=== PATIENT | female | born 1995 | race Caucasian/White ===

== ENCOUNTER → 2021-01-28 | Outpatient (CLI) | payer BC, OTHER ==
--- NOTE | 2021-01-28 10:02 | P.PAINCN ---
History of Present Illness - Reason for Consult Consult date: 01/28/21 - History of Present Illness This is 25 years old female with a chronic history of severe headache, she is diagnosed with occipital neuralgia, she was referred to [facility] pain clinic for occipital nerve block, patient reported that she had headache for 2 years starts from the base of the skull and radiated to the top, she denies any numbness or tingling sensation, she denies any motor or sensory deficit, she denies any aura, no visual changes Past Medical History Past Medical History: Asthma Additional Past Medical History / Comment(s): Migraine headaches History of Any Multi-Drug Resistant Organisms: None Reported Past Surgical History: Cholecystectomy, Orthopedic Surgery Additional Past Surgical History / Comment(s): Lt knee meniscus; Lt knee partial ACL removal Past Anesthesia/Blood Transfusion Reactions: Motion Sickness Past Psychological History: Anxiety, Depression Additional Psychological History / Comment(s): Panic attacks Smoking Status: Never smoker Past Alcohol Use History: Occasional Past Drug Use History: None Reported - Past Family History Father Family Medical History: No Reported History Medications and Allergies Home Medications Medication Instructions Recorded Confirmed Type ALPRAZolam [Xanax] 0.25 mg PO BID PRN 01/24/21 01/24/21 History Butalb/APAP/Caff 50-325-40Mg 1 tab PO Q6H PRN 01/24/21 01/24/21 History [Fioricet 50-325-40] FLUoxetine HCL [PROzac] 80 mg PO DAILY 01/24/21 01/24/21 History Ondansetron [Zofran] 4 mg PO Q8HR PRN 01/24/21 01/24/21 History Topiramate [Topamax] 150 mg PO DAILY 01/24/21 01/24/21 History buPROPion XL [Wellbutrin Xl] 150 mg PO DAILY 01/24/21 01/24/21 History Allergies Allergy/AdvReac Type Severity Reaction Status Date / Time No Known Allergies Allergy Verified 01/24/21 10:48 Physical Exam Vitals: Vital Signs Temp Pulse Resp BP Pulse Ox 01/28/21 09:29 97.8 F 72 18 148/96 100 Physical Examinations : -Constitutiona : Cooperative , not in acute distress . -HEENT : nech : supple , no Lymphadenopathy , normal thyroid size . : eyes : no ptosis , no icterus, no photophobia . - neurologic : Cranial nerve II to XII intact , no focal neurological deffecit . -psychatric : alert , oriented X 3 , appropriate affect , intact judgment and insight . -Lymphatic : no Lymphadenopathy . - musculoskeltal : Cervical Spine motor stregnth in the deltoid and biceps, normal right side , normal Left side motor stregnth biceps and the wrist extensors normal right side ,normal left side . motor stregnth in the triceps muscle . normal Right side , normal Left side deep tendon reflexes normal at the biceps , normal at Brachioradialis , normal at triceps. cervical facet loading test: Positive Bilaterally Severe tenderness over the occipital nerve bilaterally Lumber spine moter stegnth lower extremities ,thigh and legs 5/5 Right side , 5/5 Left side Results Comments: Kecia of the brain= normal Assessment and Plan Plan: Assessment and plan=1-occipital neuralgia (bilaterally ) Patient could benefit from bilateral occipital nerve block Time with Patient: Greater than 30 PQRS Measure Charge Sheet Measure #130: Documentation of Current Meds in Medical Chart: Patient's medications documented in chart Measure #226: Tobacco Use: Screen & Cessation Intervention: Pt not a tobacco user Measure #111: Pneumonia Vaccination: Pneumococcal vaccine NOT administered or previously given Measure #47: Advance Care Plan: Advance care planning discussed & documented, pt chose/unable to give Measure #412: Opioid Treatment Agreement: No documentation of signed opioid treatment agreement Measure #408: Opioid Therapy Follow-up Evaluation: Patient had NO f/u eval minimum every 3 months during opioid therapy Measure #317: Preventitive Care & Scrn High Bld Press & F/U: Pre-hypertensive or hypertensive BP documented, pt will f/u with PCP Measure #128: Body Mass Index (BMI) Screening & Follow-up: BMI documented ABOVE normal parameters - f/u documented Measure #131: Pain Assessment & Follow-up: Pain positive & plan documented, Follow-up scheduled Measure #431: Unhealthy Alcohol Use Preventative Care & Scrn: Patient not identified as an unhealthy alcohol user PQRS Narrative: Blood Pressure 148/96 Pain Intensity [Upper Frontal] 8 Scale Used Numeric (1 - 10) Hx Alcohol Use (MH) Yes Home Medications: Ambulatory Orders ALPRAZolam [Xanax] 0.25 mg PO BID PRN 01/24/21 Butalb/APAP/Caff 50-325-40Mg [Fioricet 50-325-40] 1 tab PO Q6H PRN 01/24/21 FLUoxetine HCL [PROzac] 80 mg PO DAILY 01/24/21 Ondansetron [Zofran] 4 mg PO Q8HR PRN 01/24/21 Topiramate [Topamax] 150 mg PO DAILY 01/24/21 buPROPion XL [Wellbutrin Xl] 150 mg PO DAILY 01/24/21
--- NOTE | 2021-02-12 08:48 | P.PCN ---
Date of Procedure: 02/12/21 Procedure(s) Performed: Preoperative diagnoses= 1- Greater occipital neuralgia Postoperative diagnoses= same as preoperative diagnosis. Procedure= Bilateral Greater occipital nerve block Anesthesia= moderate sedation with Versed 1 mg and fentanyl 50 micrograms and local infiltration with lidocaine 1% 4 ml Estimated blood loss=minimal. Procedure indication= the patient had a history of severe chronic neck pain ,and headache, diagnosed with occipital neuralgia exam was positive for severe tenderness over the occipital nerve bilaterally, she will be a good candidate occipital nerve block, patient failed conservative management Procedure description= the patient was seen and identified in the preoperative holding area, risks and benefits and alternative of the procedure and possible complications discussed with the patient, and he agreed with the preceding, patient signed the consent, an IV was started, and vital signs were monitored and were stable throughout the procedure, patient was placed in the sitting position or table and the neck area was prepped and draped with a sterile fashi on, vital signs were closely monitored during the procedure, 25-gauge needle advanced 1 inch lateral to the occipital protuberance on the right side, at the location of the right occipital nerve , then after negative aspiration for heme and CSF and there was no paresthesia during the injection, 6 ml of Robivacaine 0.5% and 40 mg of Depo-Medrol injected after negative aspiration, the needle removed, and the entire same procedure was repeated for the left Greater occipital nerve. Patient tolerated the procedure well without any complication, The patient returned to supine position after the back was cleaned and a Band- Aid applied, the patient transported to recovery room in stable condition and he was monitored for 30 minutes before he was discharged home and then patient was reexamined before going home and patient was discharged in stable condition and patient will follow up with the pain clinic in a few weeks.
== END | disposition home or self-care (01) ==
CPT/HCPCS: 99211

== ENCOUNTER 2021-02-12 08:03 | Day surgery (SDC) | payer BC, OTHER ==
[2021-02-08 12:50] VITALS: BMI 55.3
[~2021-02-12 08:03] MED LIST: LACTATED RINGERS 1,000 ML IV SCH
[2021-02-12] MEDS ORDERED: LIDOCAINE 1% (10MG/ML) FOR IV START INTRADERMA ONE (08:35)
[2021-02-12 08:36] VITALS: TEMP 97.1
[2021-02-12] MEDS ORDERED: ROPIVACAINE 5MG/ML 20ML VIAL ONE (08:36)
[2021-02-12] MEDS ORDERED: MIDAZOLAM 2 MG/2 ML VIAL ONE (08:36)
[2021-02-12] MEDS ORDERED: methylPREDNISolone ACETATE 40 MG/ML 1 ML VIAL ONE (08:36)
[2021-02-12] MEDS ORDERED: fentaNYL (PF) 50 MCG/ML 2 ML AMP ONE (08:36)
[2021-02-12] MEDS ORDERED: IV FLUID CONTINUATION 1,000 ML IV ONE (08:49)
[2021-02-12 08:53] VITALS: PULSE 78; RESP 18
[2021-02-12 09:08] VITALS: BP 137/78
== END 2021-02-12 09:23 | disposition home or self-care (01) ==
LOC: ORPAIN 08:03
PROVIDERS: ATTEND Specialist
DX: M54.81 Occipital neuralgia (principal)
CPT/HCPCS: 81025; 64405; J2250; J1030; J3010; J2795

== ENCOUNTER → 2021-03-04 | Outpatient (CLI) | payer BC, OTHER ==
--- NOTE | 2021-03-04 14:28 | P.PN ---
Subjective Progress Note Date: 03/04/21 This is a follow-up visit for this 25 years old female with a chronic history of severe neck pain and headache, she is diagnosed with occipital neuralgia bilaterally previously we have done, bilateral occipital nerve block patient reported that she got short-term benefits from it , the headache is constant and increased with any neck movement, she denies any motor or sensory deficit she denies any fever or night sweats Objective - Vital Signs Vital signs: Vital Signs Temp 98.3 F 03/04/21 13:54 Pulse 95 03/04/21 13:54 Resp 16 03/04/21 13:54 BP 158/105 03/04/21 13:54 Pulse Ox 100 03/04/21 13:54 - Exam Physical Examinations : -Constitutiona : Cooperative , not in acute distress . -HEENT : nech : supple , no Lymphadenopathy , normal thyroid size . : eyes : no ptosis , no icterus, no photophobia . - neurologic : Cranial nerve II to XII intact , no focal neurological deffecit . -psychatric : alert , oriented X 3 , appropriate affect , intact judgment and insight . -Lymphatic : no Lymphadenopathy . - musculoskeltal : Cervical Spine motor stregnth in the deltoid and biceps, normal right side , normal Left side motor stregnth biceps and the wrist extensors normal right side ,normal left side . motor stregnth in the triceps muscle . normal Right side , normal Left side deep tendon reflexes normal at the biceps , normal at Brachioradialis , normal at triceps. cervical facet loading test: Positive Bilaterally. Tenderness over the occipital nerves bilaterally Lumber spine moter stegnth lower extremities ,thigh and legs 5/5 Right side , 5/5 Left side MRI of the brain= normal Assessment and Plan Plan: Assessment and plan=1-occipital neuralgia bilaterally 2-cervicogenic headache. 3-cervical spondylosis. Patient continued to have headache, occipital nerve block, we will order a computed tomography scan of the cervical spine She would be a good candidate to have diagnostic medial branch block cervical area at C2, C3, and cervical occipital nerve bilaterally She could benefit from amitriptyline 25 mg daily at bedtime (prophylactic treatment for headache ). Patient will continue to use Darvocet when necessary as prescribed by her neurologist Time with Patient: Less than 30
== END ==
CPT/HCPCS: 99211

== ENCOUNTER → 2021-03-25 | Outpatient (CLI) | payer BC, OTHER ==
[2021-03-25 10:57] VITALS: BP 145/93; PULSE 75; RESP 16; TEMP 97.5
--- NOTE | 2021-03-25 11:18 | P.PN ---
Subjective Progress Note Date: 03/25/21 This is a follow-up visit for this 25 years old female with a chronic history of severe neck pain and headache, she is diagnosed with occipital neuralgia bilaterally previously we have done, bilateral occipital nerve block ,patient reported that she got short-term benefits from it , last visit we ordered a computed tomography scan of the cervical spine to evaluate cervical spine , computed tomography scan was not approved by her insurance , she continued to have severe neck pain and headache the headache is constant and increased with any neck movement, she denies any motor or sensory deficit she denies any fever or night sweats Physical Examinations : -Constitutiona : Cooperative , not in acute distress . -HEENT : nech : supple , no Lymphadenopathy , normal thyroid size . : eyes : no ptosis , no icterus, no photophobia . - neurologic : Cranial nerve II to XII intact , no focal neurological deffecit . -psychatric : alert , oriented X 3 , appropriate affect , intact judgment and insight . -Lymphatic : no Lymphadenopathy . - musculoskeltal : Cervical Spine motor stregnth in the deltoid and biceps, normal right side , normal Left side motor stregnth biceps and the wrist extensors normal right side ,normal left side . motor stregnth in the triceps muscle . normal Right side , normal Left side deep tendon reflexes normal at the biceps , normal at Brachioradialis , normal at triceps. cervical facet loading test: Positive Bilaterally. Tenderness over the occipital nerves bilaterally Lumber spine moter stegnth lower extremities ,thigh and legs 5/5 Right side , 5/5 Left side MRI of the brain= normal Assessment and plan=1-occipital neuralgia bilaterally 2-cervicogenic headache. 3-cervical spondylosis. Patient continued to have headache, after occipital nerve block, I ordered a computed tomography scan of the cervical spine It was not approved by her insurance ,She would be a good candidate to have diagnostic medial branch block cervical area at C2, C3, and 3rd occipital nerve bilaterally Time with Patient: Less than 30 - PQRS measures = - Patient's medications are documented in the chart. -Tobacco use is negative and counseling.Given. -Patient's has not received pneumococcal vaccine. -Advanced care planning discussed, patient not eligible. -Opiate contract not signed. -Pain positive and follow-up visit/procedure is scheduled. -Patient's blood pressure measured [ 145/93 ] , and documented in the record ,and patient will follow up with the primary care. -Patient's weight was measured and body mass index [54.6 ] above the normal limits and counseling was done. and patient instructed to follow-up with the primary care physician. -Patient was not identified as an unhealthy alcohol user Objective - Vital Signs Vital signs: Vital Signs Temp 97.5 F L 03/25/21 10:50 Pulse 75 03/25/21 10:50 Resp 16 03/25/21 10:50 BP 145/93 03/25/21 10:50 Pulse Ox 99 03/25/21 10:50
== END ==
LOC: PNWHC3 09:36
PROVIDERS: ATTEND Specialist
DX: M47.812 Spondylosis without myelopathy or radiculopathy, cervical region (principal); M54.81 Occipital neuralgia; G44.89 Other headache syndrome
CPT/HCPCS: 99211

== ENCOUNTER 2021-04-26 08:00 | Day surgery (SDC) | payer BC, OTHER ==
[2021-04-24 15:14] VITALS: BMI 55.7
[2021-04-26 08:19] VITALS: RESP 16; TEMP 96.8
[2021-04-26] MEDS ORDERED: LACTATED RINGERS 1,000 ML IV ONE (08:23)
[2021-04-26] MEDS ORDERED: fentaNYL (PF) 50 MCG/ML 2 ML AMP ONE (08:34)
[2021-04-26] MEDS ORDERED: ROPIVACAINE 5MG/ML 20ML VIAL ONE (08:34)
[2021-04-26] MEDS ORDERED: MIDAZOLAM 2 MG/2 ML VIAL ONE (08:34)
[2021-04-26] MEDS ORDERED: DEXAMETHASONE SOD PHOSPHATE 10 MG/ML 1 ML VIAL ONE (08:34)
[2021-04-26] MEDS ORDERED: IOPAMIDOL M200 10 ML VIAL ONE (08:34)
--- NOTE | 2021-04-26 08:50 | P.PCN ---
Description of Procedure: PREOPERATIVE DIAGNOSIS : Cervicalgia with Facet Arthropathy without myelopathy POSTOPERATIVE DIAGNOSIS: same PROCEDURE: first Diagnostic cervical medial branch block with fluoroscopy at TON, C3, C4 [bilateral] which covers facets C2-C3 and C3-C4 ANESTHESIA: Local anesthetic; moderate IV sedation with anesthesia team Fluoroscopy was used for the procedure and images were saved in the radiology portion of the chart. Surgeon: Curry Fagan MD PROCEDURE INDICATION: Cervical pain without radiculopathy, not responsive to conservative management. PROCEDURE DESCRIPTION: the patient was seen and identified in the preop holding area , risks and benefits and possible complications of the procedure and alternatives were discussed with the patient, and the patient agreed to proceed with the procedure and signed the consent . IV was started , vital signs were monitored during the procedure and fluoroscopy was used to maximize the benefit and accuracy of the needle placement, and sedation was given to decrease patient anxiety. Patient was taken to the procedure room and placed in prone position. An AP fluoroscopic machine carton marker film was taken to identify the dens, the C2, C3, C4 vertebral bodies, and the waists of the articular pillars at the aforementioned levels. A lateral view was utilized to highlight the waists of the articular pillars at these levels. The skin was prepped with chlorhexidine and draped in the usual sterile fashion. The skin and subcutaneous tissue overlying the above levels were anesthetized using a 25-gauge 1-1/2-inch needle with 1% preservative free lidocaine for a total volume of 1 ml per level. An AP fluoroscopic machine carton marker film was taken to identify the dens, the C2 C3 C4 ve rtebral bodies, and the center of the centroid at the aforementioned levels. A lateral view was utilized to highlight the centroids at these levels. The skin was prepped with chlorhexidine and draped in the usual sterile fashion. The skin and subcutaneous tissue overlying the above levels were anesthetized using a 25-gauge 1-1/2-inch needle with 1% preservative free lidocaine for a total volume of 1 ml per level. An 25-gauge 3.5" Quinke needle was advanced, coaxially, in the lateral view until the needle tip was noted to slide into the center of the centroid. The needles were advanced until bony contact was felt and the tip of the Quinke needle was confirmed to be in the center of the articular pillars at the aforementioned levels. The needle positions were confirmed with AP and lateral fluoroscopic views. 0.2 mL of Isovue 200 per level was injected which revealed no vascular uptake and after negative aspiration, 0.5 mL of ropivacaine along with Kenalog 40 mg was injected at each level and the needle subsequently removed . Total of 40 mg kenalog used. At the end of the procedure and the needles were removed and a bandage applied after the skin was cleaned. The patient was taken to recovery room in stable condition and monitors in the recovery room for 20-30 minutes and discharged home in stable condition after discharge criteria met and patient will follow up in clinic in 2 weeks EBL: Minimal COMPLICATION: None.
[2021-04-26] MEDS ORDERED: IV FLUID CONTINUATION 800 ML IV ONE (08:55)
[2021-04-26 09:24] VITALS: BP 124/71; PULSE 81
--- NOTE | 2021-04-26 12:15 | FL ---
Fluoroscopy HISTORY: Pain 10 seconds fluoroscopy time supplied to the referring clinician. 4 intraoperative C-arm images docum ent the procedure. See dictated report from anesthesia .
== END 2021-04-26 09:27 | disposition home or self-care (01) ==
LOC: ORPAIN 08:00
PROVIDERS: ATTEND Anesthesiology
DX: M47.812 Spondylosis without myelopathy or radiculopathy, cervical region (principal); J45.909 Unspecified asthma, uncomplicated; G43.909 Migraine, unspecified, not intractable, without status migrainosus; Z79.899 Other long term (current) drug therapy
CPT/HCPCS: 81025; 64450; 64490; 64491; J2250; J1100; J3010; Q9966; J2795

== ENCOUNTER → 2021-05-15 | Outpatient (CLI) | payer BC, OTHER ==
--- NOTE | 2021-05-15 10:39 | P.PAINPG ---
Subjective Progress Note Date: 05/15/21 This is a follow-up visit for this 25 years old female with a chronic history of severe neck pain and headache, she is diagnosed with occipital neuralgia bilaterally previously we have done, bilateral occipital nerve block ,patient reported that she got short-term benefits from it , last visit we ordered a computed tomography scan of the cervical spine to evaluate cervical spine , computed tomography scan was not approved by her insurance , she continued to have severe neck pain and headache the headache is constant and increased with any neck movement, she denies any motor or sensory deficit she denies any fever or night sweats. Recently had bilateral TON, C3, C4 MBB Patient reported that she had greater than 80% relief for her more than a week. She still having some relief from the injection and overall she is very happy with the procedure. The procedure overall has helped her with her functionality and have overall decreased her headache magnitude. She would like to proceed with the second one. Physical Examinations : -Constitutiona : Cooperative , not in acute distress . -HEENT : nech : supple , no Lymphadenopathy , normal thyroid size . : eyes : no ptosis , no icterus, no photo phobia . - neurologic : Cranial nerve II to XII intact , no focal neurological deffecit . -psychatric : alert , oriented X 3 , appropriate affect , intact judgment and insight . -Lymphatic : no Lymphadenopathy . - musculoskeltal : Cervical Spine motor stregnth in the deltoid and biceps, normal right side , normal Left side motor stregnth biceps and the wrist extensors normal right side ,normal left side . motor stregnth in the triceps muscle . normal Right side , normal Left side deep tendon reflexes normal at the biceps , normal at Brachioradialis , normal at triceps. cervical facet loading test: Positive Bilaterally. mild Tenderness over the occipital nerves bilaterally Lumber spine moter stegnth lower extremities ,thigh and legs 5/5 Right side , 5/5 Left side MRI of the brain= normal Assessment and plan=1-occipital neuralgia bilaterally 2-cervicogenic headache. 3-cervical spondylosis. schedule Bilateral TON, C3, C4 MBB #2 I have spent 24 minutes on review of the records, review of the imaging available, [id number] interaction with the patient, medication management, follow-up care coordination and record creation. - PQRS measures = - Patient's medications are documented in the chart. -Tobacco use is negative and counseling.Given. -Patient's has not received pneumococcal vaccine. -Advanced care planning discussed, patient not eligible. -Opiate contract not signed. -Pain positive and follow-up visit/procedure is scheduled. -Patient's blood pressure measured [ 145/93 ] , and documented in the record ,and patient will follow up with the primary care. -Patient's weight was measured and body mass index [54.6 ] above the normal limits and counseling was done. and patient instructed to follow-up with the primary care physician. -Patient was not identified as an unhealthy alcohol user PQRS Measure Charge Sheet PQRS Narrative: Pain Intensity [None] 0 Scale Used Numeric (1 - 10) Hx Alcohol Use (MH) Yes Home Medications: Ambulatory Orders ALPRAZolam [Xanax] 0.25 mg PO BID PRN 01/24/21 Butalb/APAP/Caff 50-325-40Mg [Fioricet 50-325-40] 1 tab PO Q6H PRN 01/24/21 FLUoxetine HCL [PROzac] 80 mg PO DAILY 01/24/21 Ondansetron [Zofran] 4 mg PO Q8HR PRN 01/24/21 buPROPion XL [Wellbutrin Xl] 150 mg PO DAILY 01/24/21 Albuterol Sulfate [Albuterol Sulfate Hfa] 1 puff PO DAILY PRN 04/24/21 Controlled Substance Measures - Controlled Substance Measures Is patient prescribed a controlled substance at discharge?: No
[2021-05-15 10:45] VITALS: BP 137/93; PULSE 99; RESP 18; TEMP 98.5
== END ==
LOC: PNWHC3 10:28
PROVIDERS: ATTEND Anesthesiology
DX: M54.81 Occipital neuralgia (principal); M47.812 Spondylosis without myelopathy or radiculopathy, cervical region
CPT/HCPCS: 99211

== ENCOUNTER → 2021-07-10 | Outpatient (CLI) | payer BC, OTHER ==
[2021-07-10 13:52] VITALS: TEMP 98.5
--- NOTE | 2021-07-10 14:09 | P.PAINPG ---
Subjective Progress Note Date: 07/10/21 This is a follow-up visit for this 25 years old female with a chronic history of severe neck pain and headache, she is diagnosed with occipital neuralgia bilaterally previously we have done, bilateral occipital nerve block ,patient reported that she got short-term benefits from it , last visit we ordered a computed tomography scan of the cervical spine to evaluate cervical spine , computed tomography scan was not approved by her insurance , she continued to have severe neck pain and headache the headache is constant and increased with any neck movement, she denies any motor or sensory deficit she denies any fever or night sweats. had bilateral TON, C3, C4 MBB with > 80% relief. A set the last procedure gave her about 80% relief for a month and a half. She was very happy with the injection and significantly helped with her pain. Within the past 15 days or so her pain has returned significantly. Pain is located mostly in the neck with radiation to the head. Pain is so severe today that she needs to sit in a dark room due to her significant headache. She is currently taking Fioricet, avoiding bright lights, and doing everything she can to avoid significant exacerbations of her pain. She is unable to do physical therapy at this time due to the significance of her pain Physical Examinations : -Constitutiona : Cooperative , not in acute distress . -HEENT : nech : supple , no Lymphadenopathy , normal thyroid size . : eyes : no ptosis , no icterus, no photophobia . - neurologic : Cranial nerve II to XII intact , no focal neurological deffecit . -psychatric : alert , oriented X 3 , appropriate affect , intact judgment and insight . -Lymphatic : no Lymphadenopathy . - musculoskeltal : Cervical Spine motor stregnth in the deltoid and biceps, normal right side , normal Left side motor stregnth biceps and the wrist extensors normal right side ,normal left side . motor stregnth in the triceps muscle . normal Right side , normal Left side deep tendon reflexes normal at the biceps , normal at Brachioradialis , normal at triceps. cervical facet loading test: Positive Bilaterally. mild Tenderness over the occipital nerves bilaterally Lumber spine moter stegnth lower extremities ,thigh and legs 5/5 Right side , 5/5 Left side MRI of the brain= normal Assessment and plan=1-occipital neuralgia bilaterally 2-cervicogenic headache. 3-cervical spondylosis. schedule Bilateral TON, C3, C4 MBB #2. At this time is the most effective therapy for her as it gave her greater than 80% relief for a month and a half and she is currently failing conservative therapy in the form of medications, avoiding exacerbations, and attempting to physical therapy but with a significant increase in her pain. I have spent 24 minutes on review of the records, review of the imaging available, [id number] interaction with the patient, medication management, follow-up care coordination and record creation. - PQRS measures = - Patient's medications are documented in the chart. -Tobacco use is negative and counseling.Given. -Patient's has not received pneumococcal vaccine. -Advanced care planning discussed, patient not eligible. -Opiate contract not signed. -Pain positive and follow-up visit/procedure is scheduled. -Patient's blood pressure measured [ 145/93 ] , and documented in the record ,and patient will follow up with the primary care. -Patient's weight was measured and body mass index [54.6 ] above the normal limits and counseling was done. and patient instructed to follow-up with the primary care physician. -Patient was not identified as an unhealthy alcohol user Objective - Vital Signs Vital signs: Intake & Output 07/08/21 07/09/21 07/09/21 18:59 06:59 18:59 Weight 170.097 kg PQRS Measure Charge Sheet PQRS Narrative: Pain Intensity [Head] 8 Hx Alcohol Use (MH) Yes Home Medications: Ambulatory Orders ALPRAZolam [Xanax] 0.25 mg PO BID PRN 01/24/21 Butalb/APAP/Caff 50-325-40Mg [Fioricet 50-325-40] 1 tab PO Q6H PRN 01/24/21 FLUoxetine HCL [PROzac] 80 mg PO DAILY 01/24/21 Ondansetron [Zofran] 4 mg PO Q8HR PRN 01/24/21 buPROPion XL [Wellbutrin Xl] 150 mg PO DAILY 01/24/21 Albuterol Sulfate [Albuterol Sulfate Hfa] 1 puff PO DAILY PRN 04/24/21 Controlled Substance Measures - Controlled Substance Measures Is patient prescribed a controlled substance at discharge?: No
[2021-07-10 14:15] VITALS: BP 155/91; PULSE 97; RESP 18
== END | disposition home or self-care (01) ==
LOC: PNWHC3 13:32
PROVIDERS: ATTEND Anesthesiology
DX: M47.892 Other spondylosis, cervical region (principal); M54.81 Occipital neuralgia; G44.89 Other headache syndrome
CPT/HCPCS: 99211

== ENCOUNTER 2021-09-06 06:08 | Day surgery (SDC) | payer BC, OTHER ==
[2021-09-05 10:15] VITALS: BMI 55.3
[2021-09-06 06:51] VITALS: RESP 16; TEMP 97.4
[2021-09-06] MEDS ORDERED: LACTATED RINGERS 1,000 ML IV ONE (06:53)
[2021-09-06] MEDS ORDERED: MIDAZOLAM 2 MG/2 ML VIAL ONE (07:16)
[2021-09-06] MEDS ORDERED: fentaNYL (PF) 50 MCG/ML 2 ML AMP ONE (07:16)
[2021-09-06] MEDS ORDERED: TRIAMCINOLONE ACETONIDE 40 MG/ML 1 ML VIAL ONE (07:16)
[2021-09-06] MEDS ORDERED: ROPIVACAINE 5MG/ML 20ML VIAL ONE (07:16)
[2021-09-06] MEDS ORDERED: IV FLUID CONTINUATION 900 ML IV ONE (07:45)
--- NOTE | 2021-09-06 07:45 | P.PCN ---
Date of Procedure: 09/06/21 Procedure(s) Performed: PREOPERATIVE DIAGNOSIS: 1-Cervical Spondylosis with Facet Arthropathy.without myelopathy. 2-Cervicogenic headache. 3-occipital neuralgia POSTOPERATIVE DIAGNOSIS: Same as pre-op Diagnosis. PROCEDURES: Diagnostic Bilateral C2 , C3, C4 medial branch blocks, with fluoroscopic guidance (fluoroscopy images available in radiology department ) ( to target the facet joint at Bilateral C2-3 C3-4 ) ANESTHESIA: monitered anesthesia care. EBL: Minimal PROCEDURE INDICATION: The patient with neck pain secondary to cervical arthropathy unresponsive to more conservative treatments. PROCEDURE DESCRIPTION / TECHNIQUE: The patient was seen and identified in the preoperative area. Risks, benefits, complications, and alternatives were discussed with the patient, the patient agreed to proceed with the procedure and signed the consent. IV was started. Vital signs remained stable throughout the procedure. Patient was taken to the OR and time out was completed. The patient was placed in the prone position on the procedure table. A pillow was placed under the patients chest to increase the cervical interlaminar space. The cervical area was prepped and draped in the usual sterile fashion. Critical pause was taken. Vital signs were closely monitored during the procedure. Conscious sedation was used during the procedure to decrease patients anxiety. Using cross-table lateral fluoroscopy, the centroid of the trapezoid of right C2 , C3, C4 was identified, marked, and localized with 1% lidocaine 1 ml at each level for skin and Sub Q infiltrations . Subsequently, a 22 G 3 spinal needle was advanced guided by fluoroscopy to the centroid of the trapezoid of Right C2 , C3, C4 , Graham tip position was confirmed at the centroid of the trapezoids of Right C2 , C3 , C4 with anteroposterior fluoroscopy. Subsequently, 2 ml of preservative-free Ropivacaine 0.5% mixed with Kenalog 20 mg and half ml of the mixture was injected after negative aspiration for blood and CSF. Graham was then removed intact the same procedure was repeated at the left C2 ,C3 , C4 , levels. COMPLICATIONS: No acute complications. COMMENTS:( the procedure was technically challenging secondary to body habitus and short neck . DISPOSITION / PLANS: The patient was placed in a supine position and transferred to the recovery area in a stable condition for observation and was discharged from the recovery room after meeting discharge criteria. Home discharge instructions given to the patient by the staff. The patient was reexamined prior to discharge. The patient will schedule a follow up in the clinic in 2-4 weeks.
[2021-09-06 08:04] VITALS: BP 110/78; PULSE 65
--- NOTE | 2021-09-06 08:18 | FL ---
EXAMINATION TYPE: FL guided pain mgmt statistic DATE OF EXAM: 09/06/2021 HISTORY: Fluoroscopy time 31 seconds of fluoroscopy provided. IMPRESSION: 1. Fluoroscopy time.
== END 2021-09-06 08:40 | disposition home or self-care (01) ==
LOC: ORPAIN 06:08
PROVIDERS: ATTEND Specialist
DX: M47.812 Spondylosis without myelopathy or radiculopathy, cervical region (principal); M54.81 Occipital neuralgia; J45.909 Unspecified asthma, uncomplicated; E66.01 Morbid (severe) obesity due to excess calories; Z68.43 Body mass index [BMI] 50.0-59.9, adult; F32.9 Major depressive disorder, single episode, unspecified; Z79.899 Other long term (current) drug therapy
CPT/HCPCS: 81025; 64490; 64491; J2250; J3301; J3010; J2795

== ENCOUNTER → 2021-09-25 | Outpatient (CLI) | payer BC, OTHER ==
[2021-09-25 09:55] VITALS: BP 156/97; PULSE 87; RESP 18
--- NOTE | 2021-09-25 12:12 | P.PN ---
Subjective Progress Note Date: 09/25/21 This is a follow-up visit for this 25 years old female with a chronic history of severe neck pain and headache, she is diagnosed with occipital neuralgia bilaterally previously we have done, 2 bilateral occipital nerve block ,patient reported that she got short-term benefits from the procedure. She reports greater than 80% relief from her headaches and neck pain. She also reports decrease in frequency and severity of her headaches. She currently is not having headaches and rates her pain a 0-10. When she does have headaches are made worse by light, sound or anything. Headaches are better with rest, sleep, ice, and medications. She is currently taking Fioricet, avoiding bright lights, and doing everything she can to avoid significant exacerbations of her pain. She is unable to do physical therapy at this time due to the significance of her pain. Should like to move forward with the bilateral occipital nerve radiofrequency ablation. Objective - Vital Signs Vital signs: Intake & Output 09/24/21 09/25/21 09/25/21 18:59 06:59 18:59 Weight 176.901 kg - Exam Physical Examinations : -Constitutiona : Cooperative , not in acute distress . -HEENT : nech : supple , no Lymphadenopathy , normal thyroid size . : eyes : no ptosis , no icterus, no photophobia . - neurologic : Cranial nerve II to XII intact , no focal neurological deffecit . -psychatric : alert , oriented X 3 , appropriate affect , intact judgment and insight . -Lymphatic : no Lymphadenopathy . - musculoskeltal : Cervical Spine motor stregnth in the deltoid and biceps, normal right side , normal Left side motor stregnth biceps and the wrist extensors normal right side ,normal left side . motor stregnth in the triceps muscle . normal Right side , normal Left side deep tendon reflexes normal at the biceps , normal at Brachioradialis , normal at triceps. cervical facet loading test: Positive Bilaterally Spurling test= positive Right , positive left. Neck distraction test= positive Right , positive left. Dez sign= negative Assessment and Plan Assessment: Assessment and plan=1-occipital neuralgia bilaterally 2-cervicogenic headache. 3-cervical spondylosis. schedule Right TON, C3, C4 RFA .. Repeat procedure on the left side 2 weeks after she is currently failing conservative therapy in the form of medications, avoiding exacerbations, and attempting to physical therapy but with a significant increase in her pain. - PQRS measures = - Patient's medications are documented in the chart. -Tobacco use is negative -Patient's has not received pneumococcal vaccine. -Advanced care planning discussed, patient not eligible. -Opiate contract not signed. -Pain positive and follow-up visit/procedure is scheduled. -Patient's blood pressure measured 156/97 , and documented in the record ,and patient will follow up with the primary care. -Patient was not identified as an unhealthy alcohol user Time with Patient: Less than 30
== END ==
LOC: PNWHC3 09:17
PROVIDERS: ATTEND Student in an Organized Health Care Education/Training Program
DX: M54.81 Occipital neuralgia (principal); M47.812 Spondylosis without myelopathy or radiculopathy, cervical region
CPT/HCPCS: 99211

== ENCOUNTER 2021-11-08 07:42 | Day surgery (SDC) | payer BC, OTHER ==
[2021-11-07 09:04] VITALS: BMI 55.3
[2021-11-08] MEDS ORDERED: LACTATED RINGERS 1,000 ML IV SCH (07:56)
[2021-11-08 08:06] VITALS: RESP 16; TEMP 97.5
[2021-11-08] MEDS ORDERED: .fentaNYL (PF) 50 MCG/ML 2 ML AMP ONE (08:56)
[2021-11-08] MEDS ORDERED: ROPIVACAINE 5MG/ML 20ML VIAL ONE (08:56)
[2021-11-08] MEDS ORDERED: methylPREDNISolone ACETATE 40 MG/ML 1 ML VIAL ONE (08:56)
[2021-11-08] MEDS ORDERED: MIDAZOLAM 2 MG/2 ML VIAL ONE (08:56)
--- NOTE | 2021-11-08 09:24 | P.PCN ---
Date of Procedure: 11/08/21 Procedure(s) Performed: PREOPERATIVE DIAGNOSIS: 1-Cervical Spondylosis with Facet Arthropathy.without myelopathy. 2-Cervicogenic headache. 3-occipital neuralgia POSTOPERATIVE DIAGNOSIS: Same as pre-op Diagnosis. PROCEDURES: Radiofrequency thermocoagulation,Right C2 , C3, C4, medial branch with Fluroscopy Guidence(fluoroscopy was available in etiology department ) (to denervate the facet joint at Right C2-3 ,C3- 4 ) ANESTHESIA: monitered anesthesia Care as per anesthesia department. EBL: Minimal PROCEDURE INDICATION: The patient with neck pain secondary to cervical arthropathy who had more than 50% relief of her pain with previous diagnostic cervical medial branch block. PROCEDURE DESCRIPTION / TECHNIQUE: The patient was seen and identified in the preoperative area. Risks, benefits, complications, and alternatives were discussed with the patient, the patient agreed to proceed with the procedure and signed the consent. IV was started. Vital signs remained stable throughout the procedure. Patient was taken to the OR and time out was completed. The patient was placed in the prone position on the procedure table. A pillow was placed under the patients chest to increase the cervical interlaminar space. The cervical area was prepped and draped in the usual sterile fashion. Critical pause was taken. Vital signs were closely monitored during the procedure. Conscious sedation was used during the procedure to decrease patients anxiety. Using cross-table lateral fluoroscopy, the centroid of the trapezoid of Right C2 ,C3, C4, were identified, marked, and localized with 1% lidocaine. Subsequently, a 20 [id number] radiofrequency cannula with a 10-mm active tip was advanced guided by fluoroscopy to the centroid of the trapezoid of Right C2 ,C3, C4 . Needle tip position was confirmed at the centroid of the trapezoids of Right C2 ,C3, C4 with anteroposterior fluoroscopy. Each site then underwent sensory testing at 50 Hz and 0 to 1 volt and motor testing at 2 Hz and 0 to 3 volt with local stimulation, but no radicular symptoms down the arm. Thereafter each sites underwent radiofrequency thermocoagulation at 80 degrees celsius for 90 seconds after injecting 0.5 ml of PF Ropivacaine 0.5 %. After thermocoagulation, 1 ml of the block solution containing Depo-Medrol 40 mg and 3 mL of preservative-free normal saline was injected at the Right C2 , C3, C4, levels after negative aspiration of CSF and blood and with no paresthesias. Cannulas were retracted while injecting lidocaine 1% until the needle is out. Skin was cleansed and bandages were applied. COMPLICATIONS: No acute complications. DISPOSITION / PLANS: The patient was placed in a supine position and transferred to the recovery area in a stable condition for observation and was discharged from the recovery room after meeting discharge criteria. Home discharge instructions given to the patient by the staff. The patient was reexamined prior to discharge. The patient will schedule a follow up in the clinic in 2-4 weeks.
[2021-11-08] MEDS ORDERED: IV FLUID CONTINUATION 600 ML IV ONE (09:26)
--- NOTE | 2021-11-08 09:26 | FL ---
EXAMINATION TYPE: FL guided pain mgmt statistic DATE OF EXAM: 11/08/2021 HISTORY: Fluoroscopy time 16 seconds of fluoroscopy provided. IMPRESSION: 1. Fluoroscopy time.
[2021-11-08 09:50] VITALS: BP 130/82; PULSE 58
== END 2021-11-08 10:01 | disposition home or self-care (01) ==
LOC: ORPAIN 07:42
PROVIDERS: ATTEND Specialist
DX: M54.81 Occipital neuralgia (principal); M47.812 Spondylosis without myelopathy or radiculopathy, cervical region
CPT/HCPCS: 64633; 64634; 81025; J2250; J1030; J3010; J2795

== ENCOUNTER → 2021-11-28 | Outpatient (CLI) | payer BC, OTHER ==
[2021-11-28 08:41] VITALS: BP 173/87; PULSE 83; RESP 18; TEMP 98
--- NOTE | 2021-11-28 08:45 | P.PAINPG ---
Subjective Progress Note Date: 11/28/21 Principal diagnosis: Neck pain, and headaches Mr. Curry is a 26-year-old pleasant female came to the [facility] pain clinic for post procedure evaluation, and follow-up. Patient has ongoing pain for many years. Patient had right side C2-C3, C3-C4 nerve radiofrequency ablation done on 11/08/2021. Patient describes pain is aching, throbbing, constant type of pain. Pain is not radiating. Patient rated pain levels are 0 out of 10 in severity since the procedure. Activities making pain worse. Medications, resting, neck exercises helping in relieving patient's pain. Patient pain some days better than others. Overall activities decreased secondary to pain. Denied any side effects with the medications. Denied any bowel or bladder problems at this time. Patient is not using any for walking support. Patient denies any suicidal or homicidal ideations intent or plan. Patient denies any auditory or visual hallucinations. Patient denied any red flag symptoms related to pain. Objective - Vital Signs Vital signs: Intake & Output 11/27/21 11/28/21 11/28/21 18:59 06:59 18:59 Weight 170.097 kg - Exam General: Well-developed, well-nourished, no acute distress HEENT: Normocephalic, and atraumatic Neck: Supple, no neck swelling Psychiatric: Appropriate mood, and affect [employer]: No focal neurological deficits Musculoskeletal: Upper extremity: Normal strength, and range of motion. Sensation grossly intact Lower extremity: Normal strength, and range of motion. Cervical spine: Paravertebral tenderness: Positive Cervical spine facet cinda: Negative Cervical spine Spurling test: Negative Assessment and Plan Assessment: #1 occipital neuralgia #2 cervicalgia #3 myofascial pain syndrome Plan: #1 Diagnoses, prognosis, and multiple treatment options including but not limited to physical therapy, interventional therapy, adjunct medication therapy, narcotic medication, and surgical options were discussed with the patient. And all questions were answered to the patient's satisfaction. #2 treatment plan agreement : Patient was thoroughly discussed regarding the treatment options, alternatives, and importance of exercises as tolerated. Patient clearly understood. #3 Patient was counseled on importance of regular exercise. Including elias chi, aerobic exercises as tolerated. Which helps for chronic pain, and overall well- being. Patient also counseled regarding importance of weight control rolling chronic pain, and overall other health issues. By altering diet habits, minimizing sugar intake, and processed foods helps in minimizing Inflammation. #4 investigations: MAPS- reviewed , urine drug test- not done #5 diagnostic tests: None #6 consultation : None # 7 interventional procedures: None #8 medications : None #9 morphine milligrams equivalents dose ( MME) per day: 0 from the pain clinic # 10 TENS unit's, and percussion massage device #11 disposition: scheduled to follow up with pain clinic as needed in future Note: Patient counseled regarding her high blood pressure, and its long-term complications. Patient clearly understood. Patient denied any red flag symptoms at this time. Patient recommended to follow-up with her primary care physician for medical management. Patient recommended to call 911 if noticed any red flag symptoms. Patient denied any history of hypertension but every time she visited hospital/physician her blood pressure increases as per patient. Time with Patient: Less than 30 PQRS Measure Charge Sheet Measure #130: Documentation of Current Meds in Medical Chart: Patient's medications documented in chart Measure #226: Tobacco Use: Screen & Cessation Intervention: Pt not a tobacco user Measure #111: Pneumonia Vaccination: Pneumococcal vaccine NOT administered or previously given Measure #47: Advance Care Plan: Advance care planning discussed & documented, pt chose/unable to give Measure #412: Opioid Treatment Agreement: No documentation of signed opioid treatment agreement Measure #408: Opioid Therapy Follow-up Evaluation: Patient had NO f/u eval minimum every 3 months during opioid therapy Measure #317: Preventitive Care & Scrn High Bld Press & F/U: Pre-hypertensive or hypertensive BP documented, pt will f/u with PCP Measure #128: Body Mass Index (BMI) Screening & Follow-up: BMI documented ABOVE normal parameters - f/u documented Measure #131: Pain Assessment & Follow-up: Pain positive & plan documented Measure #431: Unhealthy Alcohol Use Preventative Care & Scrn: Patient not identified as an unhealthy alcohol user PQRS Narrative: Pain Intensity [None] 0 Scale Used Numeric (1 - 10) Hx Alcohol Use (MH) Yes Home Medications: Ambulatory Orders Butalb/APAP/Caff 50-325-40Mg [Fioricet 50-325-40] 1 tab PO Q4-6H PRN 01/24/21 FLUoxetine HCL [PROzac] 80 mg PO BID 01/24/21 Ondansetron [Zofran] 4 mg PO Q8HR PRN 01/24/21 buPROPion XL [Wellbutrin Xl] 150 mg PO DAILY 01/24/21 ALPRAZolam [Xanax] 0.5 mg PO BID PRN 09/05/21 Albuterol Sulfate [Proair Hfa] 1 - 2 puff INHALATION Q6HR PRN 09/05/21 Rizatriptan Benzoate [Maxalt] 10 mg PO DIRECTED PRN 09/05/21 Controlled Substance Measures - Controlled Substance Measures Is patient prescribed a controlled substance at discharge?: No
== END ==
LOC: PNWHC3 08:14
DX: M54.81 Occipital neuralgia (principal); M79.18 Myalgia, other site
CPT/HCPCS: 99211

== ENCOUNTER 2022-07-29 05:58 | Inpatient (IN) | payer BC, OTHER ==
--- NOTE | 2022-07-28 19:55 | P.HPOB ---
History of Present Illness H&P Date: 07/28/22 Chief Complaint: Induction of labor, chronic hypertension This is a 26 y.o. female, 2, para 1, with an estimated date of confinement of 08/15/2022, estimated gestational age of 37-4/7 weeks, who presents for induction of labor due to chronic hypertension. She has been following with [facility] who has recommended delivery after 37 weeks due to chronic hypertension. She is currently controlled on Labetalol 200 mg twice daily. labs: Hepatitis B surface antigen-neg RPR_NR Vzbabru-bva-lardnz Blood type-A+ Antibody screen-neg HIV-NR Hemoglobin-13.1 Random glucose-68 1 hr. GTT-130, 3 hr. GTT-wnl GBS-neg OB Hx: . 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 Works at [employer] Systems Constitutional: Denies chills, Denies fever Eyes: denies blurred vision, denies pain Ears, nose, mouth and throat: Denies headache, Denies sore throat Cardiovascular: Denies chest pain, Denies shortness of breath Respiratory: Denies cough Gastrointestinal: Reports abdominal pain (irregular ctxs), Denies diarrhea, Denies nausea, Denies vomiting Genitourinary: Reports pelvic pain, Reports Musculoskeletal: Reports low back pain Integumentary: Denies pruritus, Denies rash Neurological: Denies numbness, Denies weakness Psychiatric: Denies anxiety, Denies depression Past Medical History Past Medical History: Asthma, Hypertension Additional Past Medical History / Comment(s): Migraine headaches, occipital neuralgia History of Any Multi-Drug Resistant Organisms: None Reported Past Surgical History: Cholecystectomy, Orthopedic Surgery Additional Past Surgical History / Comment(s): Lt knee meniscus; Lt knee partial ACL removal. Pain clinic procedures. Past Anesthesia/Blood Transfusion Reactions: No Reported Reaction, Motion Sickness Past Psychological History: Anxiety, Depression Smoking Status: Never smoker Past Alcohol Use History: None Reported Past Drug Use History: None Reported - Past Family History Father Family Medical History: Diabetes Mellitus Mother Family Medical History: Hypertension Medications and Allergies Home Medications Medication Instructions Recorded Confirmed Type Albuterol Sulfate [Proair Hfa] 1 - 2 puff INHALATION Q6HR PRN 09/05/21 11/28/21 History Aspirin [Children's Aspirin] 81 mg PO DAILY 07/28/22 07/28/22 History Labetalol HCl 200 mg PO BID 07/28/22 07/28/22 History Vit No.179/Iron/Folic 1 each PO 07/28/22 History [ Tablet] Allergies Allergy/AdvReac Type Severity Reaction Status Date / Time No Known Allergies Allergy Verified 11/27/21 09:36 Exam Osteopathic Statement: *. No significant issues noted on an osteopathic structural exam other than those noted in the History and Physical/Consult. HEENT: within normal limits Heart: regular rate and rhythm Lungs: clear to auscultation bilaterally Abdomen: Cervix: 1 cm/60%/-2 heart tones: 140's by doppler Extremities: neg. Estuardo's Assessment and Plan (1) 37 weeks gestation of Status: Acute Code(s): Z3A.37 - 37 WEEKS GESTATION OF SNOMED Code(s): 15906408 (2) Chronic hypertension Status: Acute Code(s): I10 - ESSENTIAL (PRIMARY) HYPERTENSION SNOMED Code(s): 60656479 Plan: Proceed with oxytocin induction of labor. Expectant management. Epidural anesthesia if desired.
[2022-07-29] MEDS ORDERED: TERBUTALINE 1 MG/ML VIAL SQ PRN (06:15)
[2022-07-29] MEDS ORDERED: CARBOPROST TROMETHAMINE 250 MCG/ML 1 ML AMP IM PRN (06:15)
[2022-07-29] MEDS ORDERED: METHYLERGONOVINE 0.2 MG/ML 1 ML AMP IM PRN (06:15)
[2022-07-29] MEDS ORDERED: OXYTOCIN 30 UNITS/500 ML NS 30 UNIT in SALINE 1 500ML.BAG IV SCH ×2 (06:15→19:46)
[2022-07-29] MEDS ORDERED: OXYTOCIN 10 UNIT/ML 1 ML VIAL IM PRN (06:15)
[2022-07-29] MEDS ORDERED: LIDOCAINE 0.5% (PF) 5 MG/ML (50 ML SDV) SQ PRN (06:15)
[2022-07-29] MEDS ORDERED: LIDOCAINE 1% (10MG/ML) FOR IV START INTRADERMA PRN (06:15)
[2022-07-29] MEDS ORDERED: AMPICILLIN 2,000 MG in SODIUM CHLORIDE 0.9% 100 ML IVPB STA (06:15)
[2022-07-29] MEDS: LACTATED RINGERS 1,000 ML IV SCH ×2 (06:30→20:03)
[2022-07-29 06:48] LABS: Basophils % (A) 0 %; Eosinophils # (A) 0.1 k/uL (0-0.7); Eosinophils % (A) 1 %; HCT 38.2 % (34.0-46.0); HGB 12.4 gm/dL (11.4-16.0); Lymphocytes # (A) 2.1 k/uL (1.0-4.8); Lymphocytes % (A) 21 %; MCH 29.7 pg (25.0-35.0); MCHC 32.4 g/dL (31.0-37.0); MCV 91.8 fL (80.0-100.0); Mean Platelet Volume 7.8; Monocytes # (A) 0.4 k/uL (0-1.0); Monocytes % (A) 4 %; Neutrophils # (A) 7.2 k/uL (1.3-7.7); Neutrophils % (A) 72 %; Platelet Count 316 k/uL (150-450); RBC 4.17 m/uL (3.80-5.40); RDW 13.7 % (11.5-15.5); WBC 9.9 k/uL (3.8-10.6)
[2022-07-29 08:02] LABS: Glucose,Urine (UA) Negative (Negative); Ketones,Urine Negative (Negative); Protein,Urine Trace (Negative)
[2022-07-29] MEDS ORDERED: AMPICILLIN 1,000 MG in SODIUM CHLORIDE 0.9% 50 ML IVPB SCH (10:15)
[2022-07-29] MEDS ORDERED: BUTORPHANOL 1 MG/ML 1 ML VIAL IV PRN (11:35)
--- NOTE | 2022-07-29 19:21 | P.PROBDLV ---
Vaginal Delivery Note - . Vaginal Delivery Note: The patient progressed to complete dilation after oxytocin induction of labor and artificial rupture membranes with clear fluid noted. She did receive several doses of Stadol while in labor. Once reaching complete, she rather precipitously delivered vaginally in the bed. Nose and mouth were bulb suctioned after delivery of the . No nuchal cord was noted. Cord was then clamped and cut and baby was brought to mother to [facility]. A viable female infant is noted with scores of 9 at 1 minute and 9 at 5 minutes and infant weight is 6 lbs. 7 oz. Placenta delivered shortly thereafter, intact, with a three-vessel cord. Uterus contracted fairly well after oxytocin was given and uterine massage was carried out. She did have some uterine atony and blood clots were removed from the intrauterine cavity with a gloved hand. Bladder was also drained with a catheter. Oxytocin was opened up and uterus did clamp down fairly well. Inspection of the perineum revealed a small first-degree perineal laceration. This area was anesthetized with 1% lidocaine and then sutured with 3-0 Vicryl suture in a running locked fashion. Estimated blood loss was approximately 300 mL's. Mother and infant are in stable condition.
[2022-07-29] MEDS ORDERED: HYDROCORTISONE 2.5% RECTAL CREAM 30 GM TUBE RECTAL PRN (19:46)
[2022-07-29] MEDS ORDERED: LANOLIN CREAM 5 GM TUBE TOPICAL PRN (19:46)
[2022-07-29] MEDS ORDERED: diphenhydrAMINE 50 MG CAP PO PRN (19:46)
[2022-07-29] MEDS ORDERED: diphenhydrAMINE 50 MG/ML 1 ML VIAL IVP PRN ×2 (19:46)
[2022-07-29] MEDS ORDERED: ZOLPIDEM 5 MG TAB PO PRN (19:46)
[2022-07-29] MEDS ORDERED: MEASLES-MUMPS-RUBELLA VACC/PF 12,500 UNIT/0.5 ML VIAL SQ ONE (19:46)
[2022-07-29] MEDS ORDERED: SIMETHICONE 80 MG CHEWABLE PO PRN (19:46)
[2022-07-29] MEDS ORDERED: diphenhydrAMINE 25 MG CAP PO PRN (19:46)
[2022-07-29] MEDS ORDERED: BENZOCAINE/MENTHOL SPRAY 1 GM/SPRAY AEROSOL TOPICAL PRN (19:46)
[2022-07-29] MEDS: IBUPROFEN 600 MG TAB PO PRN (20:00)
[2022-07-29] MEDS: SENNOSIDES-DOCUSATE SODIUM 1 EACH TAB PO SCH (20:03)
[2022-07-29] MEDS: LABETALOL 200 MG TAB PO SCH (20:56)
[2022-07-30] MEDS: ACETAMINOPHEN TAB 325 MG TAB PO PRN ×2 (00:03→09:03)
[2022-07-30 06:32] LABS: Basophils % (A) 0 %; Eosinophils % (A) 0 %; HCT 36.6 % (34.0-46.0); Lymphocytes # (A) 2.3 k/uL (1.0-4.8); Lymphocytes % (A) 18 %; MCH 29.9 pg (25.0-35.0); MCHC 32.8 g/dL (31.0-37.0); MCV 91.2 fL (80.0-100.0); Mean Platelet Volume 8.1; Monocytes # (A) 0.5 k/uL (0-1.0); Monocytes % (A) 4 %; Neutrophils # (A) 9.8 k/uL (1.3-7.7); Neutrophils % (A) 77 %; Platelet Count 302 k/uL (150-450); RBC 4.01 m/uL (3.80-5.40); RDW 13.9 % (11.5-15.5); WBC 12.9 k/uL (3.8-10.6)
[2022-07-30] MEDS: IBUPROFEN 600 MG TAB PO PRN (06:35)
--- NOTE | 2022-07-30 08:58 | P.DS ---
Providers Date of admission: 07/29/22 05:58 Expected date of discharge: 07/30/22 Attending physician: Angi Peacock Primary care physician: Stated None - Discharge Diagnosis(es) (1) 37 weeks gestation of Current Visit: No Status: Acute (2) Chronic hypertension Current Visit: No Status: Acute Hospital Course: This is a 26-year-old female 2 para 1 at 37-4/7 weeks who presented for induction of labor secondary to chronic hypertension. She underwent oxytocin induction of labor and delivered vaginally a viable female with scores of 9 at 1 minute and 9 at 5 minutes and infant weight of 6 lbs. 7 oz. Her course was uncomplicated. Lochia has been decreasing. Her pain is well-controlled. She is breast-feeding. Vital signs are stable. Abdomen is soft with fundus firm and nontender. Extremities show negative Homans. Impression is status post vaginal delivery day #1. Plan is to discharge home later today. Routine instructions are given. She will be given a prescription for ibuprofen. She is advised to follow-up in the office in 6 weeks for a check and in 1-2 weeks for a blood pressure check. She is advised to call the office if she has any further questions or concerns prior to her appointment times. Procedures: Oxytocin induction of labor Spontaneous vaginal delivery of a viable female infant on 07/29/2022 Patient Condition at Discharge: Stable Plan - Discharge Summary Discharge Rx Participant: No New Discharge Prescriptions: New Ibuprofen [Motrin] 600 mg PO Q6HR PRN #60 tab PRN Reason: Mild Pain (Scale 1 To 3) Continue Labetalol HCl 200 mg PO BID Vit No.179/Iron/Folic [ Tablet] 1 each PO DAILY buPROPion XL [Wellbutrin XL] 150 mg PO DAILY Discontinued Aspirin [Children's Aspirin] 81 mg PO DAILY Discharge Medication List Labetalol HCl 200 mg PO BID 07/28/22 [History] Vit No.179/Iron/Folic [ Tablet] 1 each PO DAILY 07/28/22 [History] buPROPion XL [Wellbutrin XL] 150 mg PO DAILY 07/29/22 [History] Ibuprofen [Motrin] 600 mg PO Q6HR PRN #60 tab 07/30/22 [Rx] Follow up Appointment(s)/Referral(s): Angi Peacock DO [Doctor of Osteopathic Medicine] - 6 Weeks (Also follow up in 1-2 weeks for a blood pressure check) Activity/Diet/Wound Care/Special Instructions: Instructions 1. Do not begin any exercise program for 3 weeks. 2. Do not resume sexual relations for 3 weeks or longer if uncomfortable. 3. You may take tub baths or showers at any time. 4. You may use tampons if desired after 3 weeks. 5. Keep the area of episiotomy (stitches) clean and dry. 6. If you are not nursing, wear a good fitting, supportive bra during the day and limit fluid intake for at least 1 week to prevent breast engorgement. 7. Call the office, [phone], within the next week to make appointment for your 6 week checkup if it has not already been made. 8. Report any of the following occurrences to the doctor promptly: a. Heavy, excessive bleeding b. Chills, fever c. Burning or frequency of urination d. Pain or redness and breasts if nursing e. Increasing pain or swelling in episiotomy (stitches). In addition to the above instructions, the following additional should be followed: 1. No heavy lifting or straining (exercising) until after 6 week checkup. 2. Keep abdominal incision clean and dry: You may wear a dressing if more comfortable. 3. Make office appointment for 10 days after going home or as instructed by her doctor. Discharge Disposition: HOME SELF-CARE
[2022-07-30] MEDS: PRENATAL VIT-IRON-FOLIC ACID 1 EACH TABLET PO SCH (09:03)
[2022-07-30] MEDS: LABETALOL 200 MG TAB PO SCH ×2 (09:03→20:50)
[2022-07-30] MEDS: buPROPion XL 150 MG TAB.ER.24H PO SCH (09:04)
[2022-07-30] MEDS: SENNOSIDES-DOCUSATE SODIUM 1 EACH TAB PO SCH ×2 (09:04→20:48)
[2022-07-31] MEDS: ACETAMINOPHEN TAB 325 MG TAB PO PRN ×2 (00:35→08:52)
[2022-07-31] MEDS: IBUPROFEN 600 MG TAB PO PRN ×2 (04:20→12:43)
[2022-07-31 08:45] VITALS: RESP 20; TEMP 98.2
[2022-07-31] MEDS: LABETALOL 200 MG TAB PO SCH (08:53)
[2022-07-31] MEDS: buPROPion XL 150 MG TAB.ER.24H PO SCH (08:54)
[2022-07-31] MEDS: PRENATAL VIT-IRON-FOLIC ACID 1 EACH TABLET PO SCH (08:54)
[2022-07-31] MEDS: SENNOSIDES-DOCUSATE SODIUM 1 EACH TAB PO SCH (10:28)
[2022-07-31 12:40] VITALS: BP 124/85; PULSE 80
== END 2022-07-31 14:13 | disposition home or self-care (01) | DRG 807 ==
LOC: 4FBP 05:58
PROVIDERS: ADMIT Obstetrics & Gynecology; ATTEND Obstetrics & Gynecology
PROC: 0HQ9XZZ Repair Perineum Skin, External Approach (ICD-10-PCS; principal; 2022-07-29)
PROC: 00HU33Z Insertion of Infusion Device into Spinal Canal, Percutaneous Approach (ICD-10-PCS; principal; 2022-07-29)
PROC: 10907ZC Drainage of Amniotic Fluid, Therapeutic from Products of Conception, Via Natural or Artificial Opening (ICD-10-PCS; principal; 2022-07-29)
PROC: 3E0R3NZ Introduction of Analgesics, Hypnotics, Sedatives into Spinal Canal, Percutaneous Approach (ICD-10-PCS; principal; 2022-07-29)
PROC: 10E0XZZ Delivery of Products of Conception, External Approach (ICD-10-PCS; principal; 2022-07-29)
PROC: 3E033VJ Introduction of Other Hormone into Peripheral Vein, Percutaneous Approach (ICD-10-PCS; principal; 2022-07-29)
DX: O10.92 Unspecified pre-existing hypertension complicating childbirth (principal); O70.0 First degree perineal laceration during delivery; O62.2 Other uterine inertia; O62.3 Precipitate labor; O99.344 Other mental disorders complicating childbirth; F32.A Depression, unspecified; F41.9 Anxiety disorder, unspecified; O99.52 Diseases of the respiratory system complicating childbirth; J45.909 Unspecified asthma, uncomplicated; Z79.82 Long term (current) use of aspirin; Z79.899 Other long term (current) drug therapy; Z82.49 Family history of ischemic heart disease and other diseases of the circulatory system; Z3A.37 37 weeks gestation of pregnancy; Z37.0 Single live birth
CPT/HCPCS: 81003; 85025; 86850; 86900; 86901; 88307; 90707

== ENCOUNTER 2022-10-05 08:31 | Emergency (ER) | payer BC, OTHER ==
[2022-10-05 08:37] VITALS: BP 147/95; PULSE 82; RESP 20; TEMP 98.4
[2022-10-05] MEDS ORDERED: dexAMETHasone 2 MG TAB PO STA (08:45)
--- NOTE | 2022-10-05 08:51 | ED ---
General Adult HPI - General Chief complaint: Skin/Abscess/Foreign Body Stated complaint: neck swelling Time Seen by Provider: 10/05/22 08:37 Source: patient, RN notes reviewed Mode of arrival: ambulatory Limitations: no limitations - History of Present Illness Initial comments: Patient is a pleasant 27-year-old female presenting to the emergency department with concerns for swelling to the left side of her neck. Onset was last night. Patient is having some discomfort. Discomfort is mild to moderate, not severe. No difficulty with swallowing. No difficulty with breathing. No history of similar symptoms previously. Patient does have a mild sore throat. No toothache. - Related Data Home Medications Medication Instructions Recorded Confirmed Labetalol HCl 200 mg PO BID 07/28/22 10/01/22 buPROPion XL [Wellbutrin XL] 150 mg PO QAM 07/29/22 10/01/22 Previous Rx's Medication Instructions Recorded Amoxicillin 500 mg PO Q8H #21 capsule 10/05/22 Allergies Allergy/AdvReac Type Severity Reaction Status Date / Time No Known Allergies Allergy Verified 10/05/22 08:36 Review of Systems ROS Statement: Those systems with pertinent positive or pertinent negative responses have been documented in the HPI. ROS Other: All systems not noted in ROS Statement are negative. Constitutional: Denies: fever Eyes: Denies: eye pain ENT: Reports: as per HPI. Denies: ear pain Respiratory: Denies: cough Cardiovascular: Denies: chest pain Endocrine: Denies: fatigue Gastrointestinal: Denies: abdominal pain Genitourinary: Denies: dysuria Musculoskeletal: Denies: back pain Skin: Denies: rash Neurological: Denies: weakness Past Medical History Past Medical History: Asthma, Hypertension Additional Past Medical History / Comment(s): Migraine headaches, occipital neuralgia. History of Any Multi-Drug Resistant Organisms: None Reported Past Surgical History: Cholecystectomy, Orthopedic Surgery Additional Past Surgical History / Comment(s): Left knee meniscus repair, left knee partial ACL removal, pain clinic procedures. Past Anesthesia/Blood Transfusion Reactions: No Reported Reaction, Motion Sickness Past Psychological History: Anxiety, Depression, Panic Disorder Smoking Status: Never smoker Past Alcohol Use History: None Reported Past Drug Use History: None Reported - Past Family History Father Family Medical History: Diabetes Mellitus Mother Family Medical History: Hypertension General Exam Limitations: no limitations General appearance: alert, in no apparent distress Head exam: Present: normocephalic Eye exam: Present: normal appearance ENT exam: Present: normal oropharynx Neck exam: Present: lymphadenopathy (Left anterior cervical upper with swollen area that is mobile and minimally tender. No erythema or warmth.) Respiratory exam: Present: normal lung sounds bilaterally Cardiovascular Exam: Present: regular rate, normal rhythm Neurological exam: Present: alert Psychiatric exam: Present: normal affect, normal mood Skin exam: Present: normal color Course Vital Signs 10/05/22 08:34 Temperature 98.4 F Pulse Rate 82 Respiratory 20 Rate Blood Pressure 147/95 O2 Sat by Pulse 99 Oximetry Medical Decision Making - Medical Decision Making Secondary to location and mobility and limited tenderness without erythema or warmth this is felt to be much more likely lymphadenopathy versus early abscess patient will be covered with antibiotics. Patient is updated with return parameters and need for close follow-up. Disposition Clinical Impression: Lymphadenopathy Disposition: HOME SELF-CARE Condition: Stable Instructions (If sedation given, give patient instructions): Lymphadenopathy (ED) Additional Instructions: Prescription sent to pharmacy. Please follow-up with primary care physician in the next day or 2 for recheck. Return for increased swelling, pain, fever, difficulty with breathing, difficulty with swallowing, worsening symptoms or other concerns. Prescriptions: Amoxicillin 500 mg PO Q8H #21 capsule Is patient prescribed a controlled substance at d/c from ED?: No Referrals: Seymour Jimenez MD [Primary Care Provider] - 1-2 days Time of Disposition: 08:51
[2022-10-05] MEDS ORDERED: predniSONE 50 MG TAB PO STA (08:53)
== END 2022-10-05 09:24 | disposition home or self-care (01) ==
LOC: EC 08:31
DX: R59.1 Generalized enlarged lymph nodes (principal); I10 Essential (primary) hypertension; J45.909 Unspecified asthma, uncomplicated; F41.9 Anxiety disorder, unspecified; F32.A Depression, unspecified; Z79.899 Other long term (current) drug therapy
CPT/HCPCS: 99283; J7512

== ENCOUNTER 2022-10-07 06:03 | Day surgery (SDC) | payer BC, OTHER ==
[2022-10-01 16:11] VITALS: BMI 54.6
--- NOTE | 2022-10-06 16:32 | P.HPOB ---
History of Present Illness H&P Date: 10/06/22 Chief Complaint: Family planning This is a 27 y.o. female, 2, para 2, presents for laparoscopic bilateral tubal ligation via fulgaration for family planning. She recently delivered her last child and wishes permanent sterilization. OB Hx: . History of 2 vaginal deliveries. 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 Review of Systems Constitutional: Denies chills, Denies fever Eyes: denies blurred vision, denies pain Ears, nose, mouth and throat: Denies headache, Denies sore throat Cardiovascular: Denies chest pain, Denies shortness of breath Respiratory: Denies cough Gastrointestinal: Denies abdominal pain, Denies diarrhea, Denies nausea, Denies vomiting Genitourinary: Denies dysuria, Denies hematuria Menstruation: Reports amenorrhea Musculoskeletal: Denies myalgias Integumentary: Denies pruritus, Denies rash Neurological: Denies numbness, Denies weakness Psychiatric: Reports anxiety, Reports depression Past Medical History Past Medical History: Asthma, Hypertension Additional Past Medical History / Comment(s): Migraine headaches, occipital neuralgia. History of Any Multi-Drug Resistant Organisms: None Reported Past Surgical History: Cholecystectomy, Orthopedic Surgery Additional Past Surgical History / Comment(s): Left knee meniscus repair, left knee partial ACL removal, pain clinic procedures. Past Anesthesia/Blood Transfusion Reactions: No Reported Reaction, Motion Sickness Past Psychological History: Anxiety, Depression, Panic Disorder Additional Psychological History / Comment(s): Panic attacks. Smoking Status: Never smoker Past Alcohol Use History: None Reported Past Drug Use History: None Reported - Past Family History Father Family Medical History: Diabetes Mellitus Mother Family Medical History: Hypertension Medications and Allergies Home Medications Medication Instructions Recorded Confirmed Type Labetalol HCl 200 mg PO BID 07/28/22 10/01/22 History buPROPion XL [Wellbutrin XL] 150 mg PO QAM 07/29/22 10/01/22 History Amoxicillin 500 mg PO Q8H #21 capsule 10/05/22 Rx Allergies Allergy/AdvReac Type Severity Reaction Status Date / Time No Known Allergies Allergy Verified 10/05/22 08:36 Exam Osteopathic Statement: *. No significant issues noted on an osteopathic structural exam other than those noted in the History and Physical/Consult. HEENT: within normal limits Heart: regular rate and rhythm Lungs: clear to auscultation bilaterally Abdomen: soft, non-tender Pelvic: uterus small, anteverted, non-tender, no adnexal masses or tenderness Extremities: neg. Estuardo's Assessment and Plan (1) Family planning Status: Acute Code(s): Z30.09 - ENCOUNTER FOR OTH GENERAL CNSL AND ADVICE ON CONTRACEPTION SNOMED Code(s): 132195527 Plan: Proceed with laparoscopic bilateral tubal ligation via fulgaration.
[~2022-10-07 06:03] MED LIST changes: +DEXAMETHASONE SOD PHOSPHATE 4 MG/ML 1 ML VIAL IV ONE; +LIDOCAINE 1% (10MG/ML) FOR IV START INTRADERMA PRN; +MIDAZOLAM 2 MG/2 ML VIAL IV PRN; +ONDANSETRON 4 MG/2 ML VIAL IVP ONE; +Pre Op ABX Message 1 EACH MISC MISCELLANE ONE
[2022-10-07] MEDS ORDERED: SCOPOLAMINE 1 MG/72 HR PATCH TRANSDERM ONE ×2 (06:49)
[2022-10-07] MEDS ORDERED: HYDROmorphone 0.5 MG/0.5 ML SYRINGE IVP PRN (07:00)
[2022-10-07] MEDS ORDERED: ROCURONIUM 10 MG/ML (5 ML VIAL) IV ONE (07:23)
[2022-10-07] MEDS ORDERED: GLYCOPYRROLATE 0.2 MG/ML 2 ML VIAL ONE (07:23)
[2022-10-07] MEDS ORDERED: NEOSTIGMINE 1 MG/ML 10 ML VIAL ONE (07:23)
[2022-10-07] MEDS ORDERED: MIDAZOLAM 2 MG/2 ML VIAL ONE (07:23)
[2022-10-07] MEDS ORDERED: SUCCINYLCHOLINE CHLORIDE 200 MG/10 ML VIAL IV ONE (07:23)
[2022-10-07] MEDS ORDERED: KETOROLAC 15 MG/ML 1 ML VIAL ONE (07:23)
[2022-10-07] MEDS ORDERED: PROPOFOL 10 MG/ML 20 ML VIAL IV ONE (07:23)
[2022-10-07] MEDS ORDERED: fentaNYL (PF) 50 MCG/ML 2 ML AMP ONE (07:23)
[2022-10-07] MEDS ORDERED: LIDOCAINE 2% INJ 20 MG/ML (2 ML VIAL) ONE (07:23)
[2022-10-07] MEDS ORDERED: BUPIVACAINE (PF) 0.25% 30 ML VIAL SQ ONE ×2 (07:33→08:14)
--- NOTE | 2022-10-07 08:17 | P.OP ---
Date of Procedure: 10/07/22 Preoperative Diagnosis: Family planning Postoperative Diagnosis: Same Procedure(s) Performed: Laparoscopic bilateral tubal ligation via fulguration Anesthesia: STEPHAN Surgeon: Angi Peacock Estimated Blood Loss (ml): 5 Pathology: none sent Condition: stable Disposition: same day Indications for Procedure: This is a 27 y.o. female, 2, para 2, presents for laparoscopic bilateral tubal ligation via fulgaration for family planning. She recently delivered her last child and wishes permanent sterilization. Operative Findings: Normal uterus tubes and ovaries are noted. Uterus is anteverted and sounded to 8 cm. Appendix is partially visualized and appears normal. Description of Procedure: The patient is taken to the operating room where she is placed in the dorsal lithotomy position. She is prepped and draped in the normal sterile fashion. Examination is performed under anesthesia. Uterus is found to be in a anteverted position. No adnexal masses were palpated. Next a bivalve speculum was placed in the patient's vagina. An Allis clamp was used to grasp the anterior lip of the cervix. The uterus was sounded to 8.5 cm. The kroner uterine manipulator was then inserted through the cervix and the balloon was inflated. The Allis clamp is removed speculum was removed gloves were changed and attention was turned to the abdomen. A small stab incision was made with a scalpel in the infraumbilical fold. A towel clip was placed on either side of the umbilicus for retraction. A 5 mm disposable bladeless trocar was then inserted into the peritoneal cavity under direct visualization. I did have to switch out to a long bladeless trocar in order to visualize. Once inside, pneumoperitoneum was achieved with CO2 gas. The insert was removed and the camera was placed. Intraperitoneal placement was confirmed. No bleeding was noted. Next the patient was placed in Trendelenburg position. A small stab incision was made suprapubically and a 5 mm disposable bladeless trocar was inserted into the peritoneal cavity under direct visualization. Once inside pelvic contents were inspected. Next a bipolar Kleppinger instrument was placed through the inferior trocar and the midportion of each tube was brought away from other structures and completely fulgurated on approximate 2-3 cm segment of each tube. Excellent hemostasis was noted. Pictures were taken. Pneumoperitoneum was released after the inferior trocar was removed under direct visualization. The upper trocar was then removed. The skin incisions were then closed with 4-0 Vicryl suture in a subcuticular fashion. Incisions were then injected with quarter percent Marcaine. Approximately 7 mL were used. Next the kroner uterine manipulator was removed. Minimal bleeding was noted. All sponge and needle counts are correct. The patient is then taken to recovery room in stable condition.
[2022-10-07 08:30] VITALS: RESP 16; TEMP 97.2
[2022-10-07] MEDS ORDERED: HYDROcodone/APAP 5-325MG 1 EACH TAB ONE (09:47)
[2022-10-07] MEDS ORDERED: HYDROcodone/APAP 5-325MG 1 EACH TAB PO ONE (09:52)
[2022-10-07 10:25] VITALS: BP 114/82; PULSE 71
== END 2022-10-07 10:32 | disposition home or self-care (01) ==
LOC: OR 06:03
PROVIDERS: ATTEND Obstetrics & Gynecology
DX: Z30.2 Encounter for sterilization (principal); I10 Essential (primary) hypertension; J45.909 Unspecified asthma, uncomplicated; F32.A Depression, unspecified; F41.9 Anxiety disorder, unspecified; Z90.49 Acquired absence of other specified parts of digestive tract; Z83.3 Family history of diabetes mellitus; Z82.49 Family history of ischemic heart disease and other diseases of the circulatory system; Z79.899 Other long term (current) drug therapy
CPT/HCPCS: 81025; 58670; J2250; J0330; J1100; J2710; J2405; J3010; J1885; J2704; J1170; J2001